=== PATIENT | female | born 1950 | race Caucasian/White ===

== ENCOUNTER 2019-10-21 09:32 | Day surgery (SDC) | payer MEDICARE, OTHER, SELFPAY ==
--- NOTE | 2019-10-20 19:01 | PM.PREOP ---
Pre-operative Note Interval Note History & Physical reviewed/Exam performed by Physician: Yes Changes to H&P: No
--- NOTE | 2019-10-21 08:15 | PM.OP.1 ---
Operative Date/Time/Diagnoses Date of procedure: 10/21/19 Time of procedure: 10:45 Procedure & Clinicians Procedure: Preoperative diagnoses: 1. Left nuclear sclerotic and cortical cataract. 2. Severe anxiety requiring general anesthesia for surgery pre 3. 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 4. Dry eye with punctal plugs. Postoperative diagnoses: 1. Cataract removed by phacoemulsification with placement of posterior chamber intraocular lens. Procedure: Phacoemulsification with posterior chamber intraocular lens implant Surgeon: Maricruz Joiner MD Complications: None Specimen: None Implant: ZCBOO+23.5 Blood loss: None Anesthesia: Retrobulbar with monitored standby Description of procedure: Patient presents with a complaint of decreased vision due to cataract which is affecting activities of daily living. She has decreased vision for distance and near. She has an anterior coronal basement membrane disease which has caused corneal irregularity and the cornea was then stabilized by using lubrication discontinuing her contact lens and placing a punctal plug. The patient wants surgery to improve vision. It is felt best not to place an a specialty and intra-ocular lens implant did due to her corneal disease. She has claustrophobia and anxiety and wants a general anesthesia. The patient was taken to the operating room and given IV sedation. A laryngeal mask airway was inserted. For postoperative comfort a retrobulbar block consisting of 6 cc of 2% xylocaine without epinephrine mixed half and half with 0.5% Marcaine with 1 cc of hyaluronidase added is placed between the medial and lateral 1/3 of the inferior orbital rim. The eye is manually massaged for 30 sec, prepped using Betadine solution, and draped in the usual sterile fashion. Temporal approach was made, a 1 mm side-port incision was made 90? from the proposed clear corneal incision position. Phenylephrine 1.5% mixed with 1% xylocaine 0.2 cc was placed into the anterior chamber. Viscoat followed by Love was then placed. A 2.6 mm clear incision with a 2.6 mm blade was placed. A 360 degree capsulorrhexis style capsulotomy was then performed with a cystitome needle on a Lovelyon. Hydrodelineation and hydrodissection were performed. The phacoemulsification unit is introduced, and sculpting notice used to groove the central lens. It is then removed in chopping mode. Epi nucleus is removed with epinuclear mode and irrigation aspiration was used to remove the peripheral cortex. The posterior capsule is polished. The intraocular lens is selected, inspected, power confirmed, and placed in the posterior chamber. The wound was stromally hydrated and tested for leaks, there was none and it was left sutureless. Vigamox 0.1 cc was placed into the anterior chamber. Kenalog 0.2 cc was placed in the superior subconjunctival space. A drop of antibiotic and was placed and the eye was patched and shielded. The patient was stable and returned to the recovery room in excellent condition. Dictated by: Maricruz Joiner MD Copy to: [facility] Same procedure as scheduled: Yes
[2019-10-21] MEDS: PROPARACAINE 0.5% OPHTH SOL 2 DROPS EYE-OP (10:01)
[2019-10-21 10:03] VITALS: BMI 23.2
[2019-10-21] MEDS: CATARACT EYE COMPOUND (10 DROPS/SYRINGE) 3 DROPS EYE-OP (10:07)
[2019-10-21 10:08] VITALS: BP 162/82; PULSE 73; RESP 14; TEMP 36.8; O2SAT 100
--- NOTE | 2019-10-21 10:21 | SUR.OPER ---
Supine on eye stretcher, head on extension cradle secured with tape. Arms tucked at sides with blanket. Pillow under knees.
[2019-10-21] MEDS: LACTATED RINGERS 1,000 ML 42 ML IV (10:26)
[2019-10-21] MEDS: LIDOCAINE 2% W/EPI 3 ML, BUPIVACAINE 0.5% (PF) 2 ML, HYALURONIDASE 150 UNIT INJ (11:34)
[2019-10-21] MEDS: PHENYLEPHRINE/LIDOCAINE VIAL (OR) 0.2 ML EYE-OP (11:37)
[2019-10-21] MEDS: MOXIFLOXACIN INJ 5 MG/ML VIAL EYE-OP (11:37)
[2019-10-21] MEDS: ERYTHROMYCIN OPHTH 1 GM OINT 1 APPLIC EYE-LEFT (11:37)
[2019-10-21] MEDS: TRIAMCINOLONE 50 MG/5 ML VIAL INJ (11:38)
[2019-10-21] MEDS: CHONDROIDTIN/SOD HYALURONATE 1.05 ML SYRINGE INTRAOCULA (11:39)
[2019-10-21] MEDS: HYALURONATE SODIUM 10 MG/ML SYRINGE INJ (11:39)
[2019-10-21] MEDS: BALANCED SALT IRRIG SOLN NO.2 500 ML, EPINEPHrine 1 MG IRR (11:40)
[2019-10-21 12:08] VITALS: BP 126/69; PULSE 77; RESP 14; TEMP 36.5; O2SAT 98
[2019-10-21 12:13] VITALS: BP 132/75; PULSE 81; RESP 16; O2SAT 98
[2019-10-21 12:18] VITALS: BP 109/61; PULSE 74; RESP 16; O2SAT 99
[2019-10-21 12:22] VITALS: BP 116/56; PULSE 74; RESP 16; O2SAT 99
[2019-10-21 12:42] VITALS: BP 119/72; PULSE 63; RESP 15; TEMP 36.5; O2SAT 100
== END 2019-10-21 12:42 | disposition home or self-care (01) ==
LOC: OR 09:41
PROVIDERS: PCP Family Medicine; Referring Provider Ophthalmology; Visit Provider Ophthalmology
PROC: (CPT 66984; principal; 2019-10-21 10:45)
DX: H25.812 Combined forms of age-related cataract, left eye (principal); F41.9 Anxiety disorder, unspecified; H18.59 Other hereditary corneal dystrophies; H04.129 Dry eye syndrome of unspecified lacrimal gland
CPT/HCPCS: 66984; J0171; J1100; J2250; J2405; J2704; J3301; J3470

== ENCOUNTER → 2019-11-04 07:25 | Day surgery (SDC) | payer MEDICARE, OTHER, SELFPAY ==
--- NOTE | 2019-11-03 17:33 | PM.PREOP ---
Pre-operative Note Interval Note History & Physical reviewed/Exam performed by Physician: Yes Changes to H&P: Yes H&P completed within 30 days and has changed as indicated here:: Patient presented with 2 days of right lower lid swelling and an acute chalazion of the right lower lid with some lid matter and a pustular lesion. This was drained at the bedside and patient started on doxycycline 100 milligrams bid for ten days. She is on topical tobramycin drops bid with increase to qid, stop NSAID and add doxycycline 100 milligrams bid for ten days which a prescription was given. she can continue lid compresses. She is discharged to home and will be rescheduled when she has no symptoms.
--- NOTE | 2019-11-04 08:11 | PM.OP.1 ---
Operative Date/Time/Diagnoses Date of procedure: 11/04/19 Time of procedure: 08:45 Procedure & Clinicians Procedure: Preoperative diagnoses: 1. Right nuclear sclerotic and cortical cataract. 2. Anterior basement corneal dystrophy. 3. Irritable bowel syndrome. 4. Anxiety require requiring general anesthesia per patient. Postoperative diagnoses: 1. Cataract removed by phacoemulsification with placement of posterior chamber intraocular lens. Procedure: Phacoemulsification with posterior chamber intraocular lens implant Surgeon: Maricruz Joiner MD Complications: None Specimen: None Implant: ZCBOO+23.0 Blood loss: None Anesthesia: Laryngeal mask airway with topical and retrobulbar with monitored standby due to anxiety. Description of procedure: Patient presents with a complaint of decreased distance and near vision vision due to cataract which is affecting activities of daily living. She stopped her contact lenses for cataract surgery in this demonstrated a significant corneal anterior basement membrane dystrophy. She has been on preoperative lubricants for several weeks. She was given the option of a superficial keratectomy prior to cataract surgery or proceeding with cataract surgery in treating L as necessary. She wants to proceed with cataract surgery. She is willing to wear a contact lens postoperatively again this improves comfort. The patient wants surgery to improve vision, She patient was taken to the operating room and given IV sedation A laryngeal mask airway was placed. A retrobulbar block consisting of 6 cc of 2% xylocaine without epinephrine mixed half and half with 0.5% Marcaine with 1 cc of hyaluronidase added is placed between the medial and lateral 1/3 of the inferior orbital rim for postoperative pain. The eye is manually massaged for 30 sec, prepped using Betadine solution, and draped in the usual sterile fashion. Lidocaine jelly was used to improve the corneal interface for visibility. She has had successful surgery on her other eye 2 weeks ago. Temporal approach was made, a 1 mm side-port incision was made 90? from the proposed clear corneal incision position. Phenylephrine 1.5% mixed with 1% xylocaine 0.2 cc was placed into the anterior chamber. Viscoat followed by Love was then placed. A 2.6 mm clear incision with a 2.6 mm blade was placed. A 360 degree capsulorrhexis style capsulotomy was then performed with a cystitome needle on a Healon. Hydrodelineation and hydrodissection were performed. The phacoemulsification unit is introduced, and sculpting notice used to groove the central lens. It is then removed in chopping mode. Epi nucleus is removed with epinuclear mode and irrigation aspiration was used to remove the peripheral cortex. The posterior capsule is polished. The intraocular lens is selected, inspected, power confirmed, and placed in the posterior chamber. The wound was stromally hydrated and tested for leaks, there was none and it was left sutureless. Vigamox 0.1 cc was placed into the anterior chamber. Kenalog 0.2 cc was placed in the superior subconjunctival space. A drop of antibiotic and was placed and the eye was patched and shielded. The patient was stable and returned to the recovery room in excellent condition. Dictated by: Maricruz Joiner MD Copy to: [facility]
[2019-11-04] MEDS: CATARACT EYE COMPOUND (10 DROPS/SYRINGE) 3 DROPS EYE-OP (08:17)
[2019-11-04] MEDS: PROPARACAINE 0.5% OPHTH SOL 2 DROPS EYE-OP (08:17)
[2019-11-04 08:34] VITALS: BP 173/79; PULSE 78; RESP 16; TEMP 36.7; O2SAT 98
--- NOTE | 2019-11-04 09:11 | SUR.OPER ---
Late entry (0850) Patient having lengthy discussion with Dr Joienr regarding possible infection this last week in her operative eye. Dr Joiner and patient deciding to cancel surgery for today and reschedule for next week. RX for doxycycline provided to patient. here to take patient home. Notified OR staff of cancellation.
== END | disposition home or self-care (01) ==
PROVIDERS: PCP Family Medicine; Referring Provider Nurse Practitioner; Visit Provider Ophthalmology
PROC: (CPT 66984; principal; 2019-11-04 08:45)
DX: H25.11 Age-related nuclear cataract, right eye (principal); H00.12 Chalazion right lower eyelid; Z53.09 Procedure and treatment not carried out because of other contraindication
CPT/HCPCS: 66984

== ENCOUNTER → 2020-02-07 14:29 | Outpatient (CLI) | payer MEDICARE, OTHER, SELFPAY ==
[2020-02-08 09:03] LABS: COVID19 Sendout NOT DETECTED (Not Detect)
== END ==
PROVIDERS: PCP Family Medicine; Visit Provider Physician Assistant
DX: Z01.812 Encounter for preprocedural laboratory examination (principal)
CPT/HCPCS: 87635

== ENCOUNTER 2020-02-10 10:28 | Day surgery (SDC) | payer MEDICARE, OTHER, SELFPAY ==
--- NOTE | 2020-02-07 11:44 | PM.PREOP ---
Pre-operative Note COVID-19 COVID-19 status: Negative Interval Note History & Physical reviewed/Exam performed by Physician: Yes Changes to H&P: No H&P completed within 30 days and has changed as indicated here:: Allergies, no active chalazion
--- NOTE | 2020-02-07 11:45 | PM.OP.1 ---
Operative Date/Time/Diagnoses Date of procedure: 02/10/20 Time of procedure: 11:45 Procedure & Clinicians Procedure: Preoperative diagnoses: 1. Right advanced nuclear sclerotic and cortical cataract. 2. Anterior basement membrane corneal dystrophy. 3. Severe anxiety requiring laryngeal mask airway anesthesia. Postoperative diagnoses: 1. Cataract removed by phacoemulsification with placement of posterior chamber intraocular lens. Procedure: Phacoemulsification with posterior chamber intraocular lens implant Surgeon: Maricruz Joiner MD Complications: None Specimen: None Implant: ZCBOO+22.5 Blood loss: None Anesthesia: Laryngeal mask airway with retrobulbar with monitored standby Description of procedure: Patient presents with a complaint of decreased vision due to cataract which is affecting activities of daily living. The patient wants surgery to improve vision. She has had surgery previously canceled due to unstable corneal dystrophy and then secondarily for an acute right lower lid chalazion in on the date of her last scheduled surgery. She has been treated with oral and topical antibiotics for this since. She was then delayed due to the COVID-19 epidemic. She has had successful cataract surgery in her left eye is having trouble with anisometropia. She understands the extra restoring this epidemic time and has been preoperatively tested for COVID-19 and is negative. She wishes to proceed. Due to severe anxiety a laryngeal mask airway is also.planned.. The patient was taken to the operating room and given IV sedation And then a laryngeal mask airway was added. A retrobulbar block consisting of 6 cc of 2% xylocaine without epinephrine mixed half and half with 0.5% Marcaine with 1 cc of hyaluronidase added is placed between the medial and lateral 1/3 of the inferior orbital rim for postoperative pain relief. The eye is manually massaged for 30 sec, prepped using Betadine solution, and draped in the usual sterile fashion. Temporal approach was made, a 1 mm side-port incision was made 90? from the proposed clear corneal incision position. Phenylephrine 1.5% mixed with 1% xylocaine 0.2 cc was placed into the anterior chamber. Viscoat followed by Love was then placed. A 2.6 mm clear incision with a 2.6 mm blade was placed. A 360 degree capsulorrhexis style capsulotomy was then performed with a cystitome needle on a Healon. Hydrodelineation and hydrodissection were performed. The phacoemulsification unit is introduced, and sculpting notice used to groove the central lens. It is then removed in chopping mode. Epi nucleus is removed with epinuclear mode and irrigation aspiration was used to remove the peripheral cortex. The posterior capsule is polished. The intraocular lens is selected, inspected, power confirmed, and placed in the posterior chamber. The wound was stromally hydrated and tested for leaks, there was none and it was left sutureless. Vigamox 0.1 cc was placed into the anterior chamber. Kenalog 0.2 cc was placed in the superior subconjunctival space. A drop of antibiotic and was placed and the eye was patched and shielded. The patient was stable and returned to the recovery room in excellent condition. Dictated by: Maricruz Joiner MD Copy to: [facility] Same procedure as scheduled: Yes
[2020-02-10] MEDS: PROPARACAINE 0.5% OPHTH SOL 2 DROPS EYE-OP (10:53)
[2020-02-10] MEDS: CATARACT EYE COMPOUND (10 DROPS/SYRINGE) 3 DROPS EYE-OP (10:55)
[2020-02-10 11:01] VITALS: BP 179/91; PULSE 76; RESP 14; TEMP 37; O2SAT 100; BMI 23.2
[2020-02-10] MEDS: LACTATED RINGERS 1,000 ML 42 ML IV (11:20)
[2020-02-10] MEDS: CHONDROIDTIN/SOD HYALURONATE 1.05 ML SYRINGE INTRAOCULA (12:02)
[2020-02-10] MEDS: HYALURONATE SODIUM 10 MG/ML SYRINGE INJ (12:02)
[2020-02-10] MEDS: ERYTHROMYCIN OPHTH 1 GM OINT 1 APPLIC EYE-RIGHT (12:03)
[2020-02-10] MEDS: PHENYLEPHRINE/LIDOCAINE VIAL (OR) 0.2 ML EYE-OP (12:03)
[2020-02-10] MEDS: MOXIFLOXACIN INJ 5 MG/ML VIAL EYE-OP (12:03)
[2020-02-10] MEDS: TRIAMCINOLONE 50 MG/5 ML VIAL INJ (12:04)
[2020-02-10] MEDS: BALANCED SALT IRRIG SOLN NO.2 500 ML, EPINEPHrine 1 MG IRR (12:04)
[2020-02-10] MEDS: LIDOCAINE 2% 4 ML, BUPIVACAINE 0.5% (PF) 4 ML, HYALURONIDASE 150 UNIT INJ (12:05)
[2020-02-10 12:35] VITALS: BP 118/67; PULSE 64; RESP 14; TEMP 36.2; O2SAT 98
[2020-02-10 12:40] VITALS: BP 129/75; PULSE 70; RESP 13; O2SAT 99
[2020-02-10 12:44] VITALS: BP 100/69; PULSE 72; RESP 14; O2SAT 99
[2020-02-10 12:56] VITALS: BP 124/76; PULSE 71; RESP 15; TEMP 36.2; O2SAT 99
[2020-02-10 13:03] VITALS: BP 144/76; PULSE 57; RESP 16; TEMP 36.4; O2SAT 99
== END 2020-02-10 13:28 | disposition home or self-care (01) ==
LOC: OR 10:32
PROVIDERS: PCP Family Medicine; Referring Provider Ophthalmology; Visit Provider Ophthalmology
PROC: (CPT 66984; principal; 2020-02-10 11:45)
DX: H25.811 Combined forms of age-related cataract, right eye (principal); H18.59 Other hereditary corneal dystrophies; F41.9 Anxiety disorder, unspecified
CPT/HCPCS: 66984; J0171; J1100; J2250; J2405; J3301; J3470

== ENCOUNTER → 2020-09-15 15:13 | Outpatient (CLI) | payer MEDICARE, OTHER, SELFPAY ==
[2020-09-15] MEDS: COVID-19 VACC #1, MRNA(MOD) 100 MCG/0.5 ML VIAL IM (15:19)
== END ==
PROVIDERS: PCP Family Medicine; Visit Provider Internal Medicine
DX: Z23 Encounter for immunization (principal)
CPT/HCPCS: 0011A; 91301

== ENCOUNTER → 2020-10-13 15:14 | Outpatient (CLI) | payer MEDICARE, OTHER, SELFPAY ==
[2020-10-13] MEDS: COVID-19 VACC #2, MRNA(MOD) 100 MCG/0.5 ML VIAL IM (15:18)
== END ==
PROVIDERS: PCP Family Medicine; Visit Provider Internal Medicine
DX: Z23 Encounter for immunization (principal)
CPT/HCPCS: 0012A; 91301

== ENCOUNTER → 2023-05-15 09:46 | Outpatient (ROUT) | payer OTHER, SELFPAY ==
[2023-05-15 10:35] LABS: Influenza A - CEPHEID Flu A NEGATIVE (NEGATIVE); Influenza B - CEPHEID Flu B NEGATIVE (NEGATIVE); Respiratory Syncytial Virus Negative (Negative)
[2023-05-15 10:50] LABS: COVID-19 CEPHEID 4-PLEX PCR Negative (Negative)
== END ==
PROVIDERS: PCP Family Medicine; Visit Provider Family Medicine
DX: Z11.59 Encounter for screening for other viral diseases (principal); R05.1 Acute cough
CPT/HCPCS: 0241U

== ENCOUNTER → 2023-08-28 13:16 | Outpatient (CLI) | payer OTHER, SELFPAY ==
--- NOTE | 2023-08-28 13:22 | DI.RAD.S_ITS ---
PROCEDURE: XR ANKLE LT 2V INDICATIONS: ANKLE AND FOOT PAIN TECHNIQUE: 2 views of the ankle were acquired. COMPARISON: None. FINDINGS: Bones: Decreased mineralization. No fractures or dislocations. No suspicious bone lesions. Ankle mortise appears normal. Tiny plantar calcaneal spur. Soft tissues: No tibiotalar joint effusion. Achilles tendon appears normal. IMPRESSION: No acute bony abnormality or significant effusion. Dictated by: Roopa Noriega M.D. on 08/28/2023 at 17:24 Approved by: Roopa Noriega M.D. on 08/28/2023 at 17:24
--- NOTE | 2023-08-28 13:23 | DI.RAD.S_ITS ---
PROCEDURE: XR FOOT LT 2V INDICATIONS: ANKLE AND FOOT PAIN TECHNIQUE: 2 views of the foot were acquired. COMPARISON: None. FINDINGS: Bones: Decreased mineralization. There is a nondisplaced cortical irregularity along the lateral aspect of the 5th metatarsal neck which may be deformity of remote fracture. No acute fractures are seen. Mild degenerative joint space loss at the 1st metatarsal-phalangeal joint. Tiny plantar calcaneal spur and dorsal anterior talar spur. Soft tissues: No tibiotalar joint effusion. Achilles tendon appears normal. IMPRESSION: 1. No definite acute fracture. 2. Probable remote 5th metatarsal neck fracture. Dictated by: Roopa Noriega M.D. on 08/28/2023 at 17:24 Approved by: Roopa Noriega M.D. on 08/28/2023 at 17:26
== END ==
LOC: RAD 13:21
PROVIDERS: PCP Family Medicine; Referring Provider Family Medicine; Visit Provider Family Medicine
DX: M79.672 Pain in left foot (principal); M25.572 Pain in left ankle and joints of left foot
CPT/HCPCS: 73600; 73620

== ENCOUNTER → 2024-11-24 09:34 | Outpatient (CLI) | payer OTHER, SELFPAY ==
--- NOTE | 2024-11-24 09:36 | DI.RAD.S_ITS ---
PROCEDURE: XR FINGER RT MIN 2V INDICATIONS: Pain in right finger(s) TECHNIQUE: AP hand, 2 views of the right 2nd finger(s) acquired. COMPARISON: None. FINDINGS: Bones: There are no osseous abnormalities Joints: Severe STT and 1st CMC degeneration appreciated. There is severe 2nd DIP degeneration and moderate 2nd PIP degeneration. Soft tissues: Mild diffuse soft swelling noted IMPRESSION: Degeneration. Dictated by: Ean Patel M.D. on 11/25/2024 at 9:47 Approved by: Ean Patel M.D. on 11/25/2024 at 9:48
== END ==
PROVIDERS: PCP Family Medicine; Referring Provider Family Medicine; Visit Provider Family Medicine
DX: M18.11 Unilateral primary osteoarthritis of first carpometacarpal joint, right hand (principal); M19.041 Primary osteoarthritis, right hand; M79.644 Pain in right finger(s)
CPT/HCPCS: 73140

== ENCOUNTER → 2024-12-18 10:50 | Outpatient (CLI) | payer OTHER, SELFPAY ==
--- NOTE | 2024-12-18 10:52 | DI.RAD.S_ITS ---
PROCEDURE: XR SHOULDER LT MIN 2V INDICATIONS: SHOULDER PAIN TECHNIQUE: 3 views of the shoulder were acquired. COMPARISON: None. FINDINGS: Bones: No fractures or dislocations. No suspicious bony lesions. Visualized ribs appear intact. Acromioclavicular joint space narrowing with osteophytosis. Soft tissues: No suspicious soft tissue calcifications. IMPRESSION: No acute bony abnormality. Mild acromioclavicular osteoarthritis. Dictated by: Felix Spence M.D. on 12/18/2024 at 14:45 Approved by: Felix Spence M.D. on 12/18/2024 at 14:46
== END ==
PROVIDERS: PCP Family Medicine; Referring Provider Family Medicine; Visit Provider Family Medicine
DX: M19.012 Primary osteoarthritis, left shoulder (principal); M25.512 Pain in left shoulder
CPT/HCPCS: 73030

== ENCOUNTER → 2024-12-23 08:36 | Outpatient (CLI) | payer OTHER, SELFPAY ==
--- NOTE | 2024-12-23 | DI.RAD.S_ITS ---
PROCEDURE: XR CHEST 2V INDICATIONS: CHEST PAIN TECHNIQUE: 2 views of the chest were acquired. COMPARISON: None. FINDINGS: Surgical changes and devices: None. Lungs and pleura: Lungs are clear. No pleural effusions or pneumothorax. Mediastinum: Mediastinal contours are normal. Heart size is normal. Bones and chest wall: No suspicious bony abnormalities. Soft tissues appear unremarkable. IMPRESSION: No acute cardiopulmonary disease. Dictated by: Nelson Pruitt RR Interpreted: Jj Wilburn MD on 12/23/2024 at 9:16 Transcribed by: HADLEY on 12/23/2024 at 9:17 Approved by: Jj Wilburn M.D. on 12/23/2024 at 12:32
== END ==
PROVIDERS: PCP Family Medicine; Referring Provider Family Medicine; Visit Provider Family Medicine
DX: R07.9 Chest pain, unspecified (principal)
CPT/HCPCS: 71046

== ENCOUNTER → 2024-12-31 17:09 | Outpatient (CLI) | payer OTHER, SELFPAY ==
--- NOTE | 2024-12-31 17:11 | DI.CT.S_ITS ---
PROCEDURE: CT CHEST W CON INDICATIONS: CHEST PAIN TECHNIQUE: After the administration of intravenous contrast, 5 mm thick sections acquired from the pulmonary apices to the posterior costophrenic angles. 1 mm axial lung, 5 mm thick coronal and sagittal reformats and 7 mm axial MIP were acquired. For radiation dose reduction, the following was used: automated exposure control, adjustment of mA and/or kV according to patient size. COMPARISON: None. FINDINGS: Image quality: Diagnostic. Lower Neck: No enlarged lymph nodes. Thyroid: No thyroid nodules which require sonographic follow up, per consensus guidelines. Axillae: No enlarged lymph nodes. Chest Wall: Unremarkable. Bones: Unremarkable. Lungs and Pleura: No pneumothorax or pleural effusions. No consolidation or suspicious nodules. Heart: Heart size is normal. No pericardial effusion. Thoracic Vessels: The aorta and pulmonary arteries demonstrate normal size. Mediastinum and Aleisha: No enlarged lymph nodes. Esophagus: No wall thickening. No hiatal hernia. Upper Abdomen: Visualized upper abdomen solid organs and bowel loops appear normal. IMPRESSION: No acute intrathoracic abnormality or significant focal lesion seen. Dictated by: Morro Christine M.D. on 12/31/2024 at 20:45 Approved by: Morro Christine M.D. on 12/31/2024 at 20:50
[2024-12-31 17:48] LABS: Estimated Glomerular Filt Rate > 60 mL/min (>60)
== END ==
LOC: CT 17:10
PROVIDERS: PCP Family Medicine; Referring Provider Family Medicine; Visit Provider Family Medicine
DX: R07.89 Other chest pain (principal)
CPT/HCPCS: 71260; 82565; Q9967

== ENCOUNTER → 2025-01-05 12:44 | Outpatient (CLI) | payer OTHER, SELFPAY ==
--- NOTE | 2025-01-05 12:52 | DI.CT.S_ITS ---
PROCEDURE: CT CERVICAL SPINE WO CON INDICATIONS: CERVICAL RADICULOPATHY TECHNIQUE: Noncontrast 3 mm thick sections acquired from the skull base to the T4 level. Sagittal and coronal reformats were then constructed. For radiation dose reduction, the following was used: automated exposure control, adjustment of mA and/or kV according to patient size. COMPARISON: None. FINDINGS: Image quality: Excellent Reversal normal cervical spine lordosis. Mild anterolisthesis C2 on C3, C5 on C6. Vertebral body height of cervical spine are well maintained. Multilevel degenerative disease cervical spine, most pronounced and moderate at C3-4 and C4-5. No significant right cervical facet arthropathy. Multilevel right uncovertebral arthropathy. Multilevel left cervical facet arthropathy, most pronounced and moderate at C5-6. Multilevel left uncovertebral arthropathy Osseous central canal stenosis: Mild at C3-4, C5-6. Right osseous neural foraminal stenosis: Moderate at C3-4, C4-5. Left osseous neural foraminal stenosis: Moderate at C3-4, and C4-5. mild at C5-6. No prevertebral soft tissue edema. No cervical lymphadenopathy. Visualized lung apices unremarkable. IMPRESSION: 1. Multilevel degenerative changes of the cervical spine, most pronounced at C3-4 and C4-5, where there is moderate bilateral osseous neural foraminal stenosis. 2. Multilevel mild central canal stenosis. Dictated by: Patricia Romero M.D. on 01/05/2025 at 15:34 Approved by: Patricia Romero M.D. on 01/05/2025 at 15:43
== END ==
LOC: CT 12:45
PROVIDERS: PCP Family Medicine; Referring Provider Family Medicine; Visit Provider Family Medicine
DX: M54.12 Radiculopathy, cervical region (principal); M48.02 Spinal stenosis, cervical region
CPT/HCPCS: 72125

== ENCOUNTER → 2025-03-23 10:12 | Outpatient (CLI) | payer OTHER, SELFPAY ==
--- NOTE | 2025-03-23 10:13 | DI.RAD.S_ITS ---
PROCEDURE: XR DEXA AXIAL SKELETON INDICATIONS: OSTEOPOROSIS SCREENING COMPARISON: None. FINDINGS: Lumbar Spine: Bone mineral density 0.688 g/cm2, T score -3.3, baseline. Left Femoral Neck: Bone mineral density 0.496 g/cm2, T score -3.2. Left Hip: Bone mineral density 0.668 g/cm2, T score -2.2, baseline. Fracture Risk Calculation (when applicable): Not reported due to osteoporosis diagnosis. (T score greater or equal to -1.0 to: NORMAL) (T score from -1.1 to -2.4: OSTEOPENIA) (T score less than or equal to -2.5: OSTEOPOROSIS) IMPRESSION: Osteoporosis. Follow-up guidelines as follows: Osteoporosis: Consider a repeat DEXA and Vertebral Fracture Assessment (VFA) exam in 2 years or sooner if medically necessary, to reassess this patient's status. Osteopenia: Consider a repeat DEXA in 2-3 years to reassess this patient's status, or if there is a new clinical indication. Normal: Consider a repeat DEXA in 5 years or sooner, or if there is a new clinical indication. All treatment decisions require clinical judgment and consideration of individual patient factors, including patient preferences, comorbidities, previous drug use, risk factors not captured in the FRAX model (e.g., frailty, falls, vitamin D deficiency, increased bone turnover, interval significant decline in bone density ) and possible under- or over-estimation of fracture risk by FRAX. In addition, the NOF Guide recommends that FDA-approved medical therapies be considered in postmenopausal women and men age >= 50 years with a: * Hip or vertebral (clinical or morphometric) fracture * T-score of <=-2.5 at the spine or hip * Ten-year fracture probability by FRAX of >= 3% for hip fracture or >=20% for major osteoporotic fracture. Dictated by: Felix Spence M.D. on 03/23/2025 at 14:19 Approved by: Felix Spence M.D. on 03/23/2025 at 14:20
== END ==
LOC: RAD 10:12
PROVIDERS: PCP Family Medicine; Referring Provider Family Medicine; Visit Provider Family Medicine
DX: M81.0 Age-related osteoporosis without current pathological fracture (principal); Z78.0 Asymptomatic menopausal state
CPT/HCPCS: 77080